=== PATIENT | male | born 1960 | race American Indian/Alaskan Native ===

== ENCOUNTER 2018-08-03 13:03 | Inpatient (IN) | payer OTHER ==
[2018-08-03] MEDS ORDERED: KEPPRA 1,000 MG/NS 0.75% 100ML 0 MG/0 ML BAG IV ONE (13:52)
[2018-08-03] MEDS ORDERED: ATIVAN IV ONE ×2 (14:00→16:21)
[2018-08-03] MEDS ORDERED: VITAMIN B-1 PO ONE (14:00)
[2018-08-03 14:19] LABS: Hematocrit 28.4 % (35.5-45.6); Hemoglobin 9.1 gm/dl (11.8-15.2); Mean Corpuscular HGB Conc 32 % (32-34); Mean Corpuscular Volume 80 fl (84-94); Platelet Count 234 K/mm3 (140-440); Red Blood Count 3.57 M/mm3 (3.65-5.03); Red Cell Distribution Width 16.1 % (13.2-15.2)
[2018-08-03 14:30] LABS: INR 1.04 (0.87-1.13)
[2018-08-03] MEDS ORDERED: VITAMIN B-1 100 MG, FOLVITE 1 MG, INFUVITE 10 ML in NACL 0.9% 1000 ML 1,000 ML IV ONE (14:30)
[2018-08-03] MEDS ORDERED: FOLVITE 1 MG, INFUVITE 10 ML in NACL 0.9% 1000 ML 1,000 ML IV ONE (14:30)
[2018-08-03 14:31] LABS: Partial Thromboplastin Time 30.1 Sec. (24.2-36.6)
--- NOTE | 2018-08-03 14:38 | XRay Report ---
CHEST ONE VIEW INDICATION: Hypertension. COMPARISON: None similar at this institution. FINDINGS: Portable, single, frontal chest radiograph demonstrates top normal heart size. Normal mediastinal and hilar contours. Clear lungs. Unremarkable bones. Extrinsic EKG leads. CONCLUSION: No acute disease in the chest. Thank you for the opportunity to participate in this patient's care.
[2018-08-03 14:46] LABS: Creatine Kinase MB 1.6 ng/mL (0.0-4.0)
[2018-08-03 14:48] LABS: Albumin 3.3 g/dL (3.9-5); Bilirubin,Direct 0.3 mg/dL (0-0.2); Calcium 7.7 mg/dL (8.4-10.2)
[2018-08-03] MEDS ORDERED: MAGNESIUM SULFATE 2GM/50ML 2 GM/50 ML BAG IV ONE (15:41)
[2018-08-03] MEDS ORDERED: NORMODYNE IV ONE ×2 (15:58)
[2018-08-03] MEDS ORDERED: KEPPRA 1,000 MG/NS 0.75% 100ML 1,000 MG/100 ML BAG IV ONE (16:24)
--- NOTE | 2018-08-03 16:26 | Emergency Department Report ---
ED Seizure HPI - General Chief Complaint: Seizure Stated Complaint: BACK PAIN Time Seen by Provider: 08/03/18 13:58 Source: patient, EMS Mode of arrival: Stretcher Limitations: No Limitations - History of Present Illness Initial Comments: 57-year-old female is brought in by EMS after having a seizure in the back of a taxi. It is said that the patient was coming out of liquor store at that time. The patient tells me that he stopped drinking yesterday. He is very tremulous. He does not complain of any injury. He has had seizures upon alcohol disco ntinuance before. MD Complaint: seizure -: unknown Description of Episode: tonic-clonic movement Witnessed:: Yes Trauma: No Seizure History: known seizure disorder (versus), history of withdrawal se Place: other Possible Precipitating Event: alcohol withdrawal - Related Data Allergies Allergy/AdvReac Type Severity Reaction Status Date / Time No Known Allergies Allergy Unverified 08/03/18 13:17 ED Review of Systems ROS: Stated complaint: BACK PAIN Other details as noted in HPI Constitutional: denies: chills, fever Eyes: denies: eye pain, eye discharge, vision change ENT: denies: ear pain, throat pain Respiratory: denies: cough, shortness of breath, wheezing Cardiovascular: denies: chest pain, palpitations Endocrine: no symptoms reported Gastrointestinal: denies: abdominal pain, nausea, diarrhea Genitourinary: denies: urgency, dysuria Musculoskeletal: denies: back pain, joint swelling, arthralgia Skin: denies: rash, lesions Neurological: denies: headache, weakness, paresthesias Psychiatric: denies: anxiety, depression Hematological/Lymphatic: denies: easy bleeding, easy bruising ED Past Medical Hx - Past Medical History Previous Medical History?: Yes Hx Hypertension: Yes - Surgical History Past Surgical History?: No - Social History Smoking Status: Never Smoker Substance Use Type: Alcohol ED Physical Exam - General Limitations: No Limitations, Other (patient had intermittent tangential speech about low blood pressure and low hemoglobin but is basically oriented) General appearance: other (very tremulous) - Head Head exam: Present: atraumatic - Eye Eye exam: Present: PERRL, EOMI. Absent: scleral icterus - ENT ENT exam: Present: other (multiple previous healed tongue bites with fresh tongue abrasion) - Neck Neck exam: Present: normal inspection. Absent: tenderness, meningismus - Respiratory Respiratory exam: Present: normal lung sounds bilaterally. Absent: respiratory distress - Cardiovascular Cardiovascular Exam: Present: regular rate, normal rhythm. Absent: systolic murmur, diastolic murmur, rubs, gallop - GI/Abdominal GI/Abdominal exam: Present: soft, normal bowel sounds. Absent: distended, tenderness, guarding, rebound, rigid - Extremities Exam Extremities exam: Present: normal inspection, normal capillary refill. Absent: calf tenderness - Back Exam Back exam: Present: normal inspection. Absent: CVA tenderness (R), CVA tenderness (L), muscle spasm, paraspinal tenderness, vertebral tenderness - Neurological Exam Neurological exam: Present: altered (intermittently), CN II-XII intact. Absent: motor sensory deficit - Psychiatric Psychiatric exam: Present: normal affect, anxious - Skin Skin exam: Present: warm, dry, intact, normal color. Absent: rash ED Course Vital Signs 08/03/18 08/03/18 08/03/18 13:17 13:43 13:45 Temperature 98.5 F 98.5 F Pulse Rate 100 H 100 H Respiratory 20 20 20 Rate Blood Pressure 169/107 Blood Pressure 169/107 [Right] O2 Sat by Pulse 98 98 98 Oximetry - Reevaluation(s) Reevaluation #1: Patient has signs of substantial alcohol which all. He is tongue fasciculations. He is grossly tremulous. He was given Ativan which needs titration. Banana bag initiated. We do not have IV thiamine. By mouth will be ordered. His magnesium level is extremely low. This is being repleted. He will go for a CT of his head. It appears he said multiple seizures in the past 5 added Keppra to his regimen. He will require admission to the hospitalist service for impending DT's 08/03/18 16:31 ED Medical Decision Making - Lab Data Result diagrams: 08/03/18 13:58 08/03/18 14:01 Laboratory Results - last 24 hr 08/03/18 08/03/18 08/03/18 13:55 13:58 14:01 WBC 6.6 RBC 3.57 L Hgb 9.1 L Hct 28.4 L MCV 80 L MCH 26 L MCHC 32 RDW 16.1 H Plt Count 234 PT 14.0 INR 1.04 APTT 30.1 Sodium Potassium Chloride Carbon Dioxide Anion Gap BUN Creatinine Estimated GFR BUN/Creatinine Ratio Glucose POC Glucose 105 Calcium Magnesium Total Bilirubin Direct Bilirubin Indirect Bilirubin AST ALT Alkaline Phosphatase Ammonia Total Creatine Kinase CK-MB (CK-2) CK-MB (CK-2) Rel Index NT-Pro-B Natriuret Pep Total Protein Albumin Albumin/Globulin Ratio Plasma/Serum Alcohol 08/03/18 08/03/18 08/03/18 14:01 14:30 14:45 WBC RBC Hgb Hct MCV MCH MCHC RDW Plt Count PT INR APTT Sodium 134 L Potassium 3.4 L Chloride 91.7 L Carbon Dioxide 25 Anion Gap 21 BUN 16 Creatinine 1.8 H Estimated GFR 39 BUN/Creatinine Ratio 9 Glucose 105 H POC Glucose Calcium 7.7 L Magnesium 0.70 L* Total Bilirubin 0.70 Direct Bilirubin 0.3 H Indirect Bilirubin 0.4 AST 39 ALT 15 Alkaline Phosphatase 60 Ammonia 38.0 Total Creatine Kinase 152 CK-MB (CK-2) 1.6 CK-MB (CK-2) Rel Index 1.0 NT-Pro-B Natriuret Pep 1897 H Total Protein 8.4 H Albumin 3.3 L Albumin/Globulin Ratio 0.6 Plasma/Serum Alcohol < 0.01 - EKG Data -: EKG Interpreted by Me EKG shows normal: sinus rhythm, axis, intervals, QRS complexes, ST-T waves Rate: normal - EKG Data Interpretation: nonspecific ST-T wave jaspreet - Radiology Data Radiology results: report reviewed interpreted by me: MOUNIKA Critical care attestation.: If time is entered above; I have spent that time in minutes in the direct care of this critically ill patient, excluding procedure time. ED Disposition Clinical Impression: DTs (delirium tremens), Seizure, Hypomagnesemia, Hypokalemia, Renal insufficiency Disposition: OP ADMIT IP TO THIS HOSP Is pt being admited?: Yes Does the pt Need Aspirin: Yes Condition: Stable Referrals: BERENICE GAMEZ MD [Primary Care Provider] - 3-5 Days Time of Disposition: 16:44
[2018-08-03] MEDS ORDERED: BABY ASPIRIN PO ONE (16:44)
[2018-08-03] MEDS ORDERED: K-DUR PO ONE (16:45)
[2018-08-03] MEDS ORDERED: ATIVAN IV PRN (16:47)
--- NOTE | 2018-08-03 17:48 | Cat Scan Report ---
FINAL REPORT EXAM: CT HEAD/BRAIN WO CON HISTORY: seizure TECHNIQUE: 2.5 millimeter axial images from the skullbase to the vertex. Comparison: None FINDINGS: There is no evidence of an acute intracranial process, intracranial hemorrhage or mass effect. Ventricular size is concordant with the degree of atrophy. There is an approximately 12 millimeter focus of calcification in the right parafalcine frontal regio n which may represent a small calcified meningioma. This does not result in mass effect. The visualized portions of the orbits, paranasal and mastoid sinuses are notable for mild to moderate bilateral maxillary, ethmoid and frontal sinus mucosal thickening with air-fluid levels. This is sug gestive of acute sinusitis. The bony structures are unremarkable. IMPRESSION: 1. No evidence of an acute intracranial process, intracranial hemorrhage or mass effect. If there is a clinical suspicion of an acute intracranial process and if there is no clinical contrai ndication, MRI brain may be helpful. 2. Evidence of acute sinusitis paranasal sinuses. 3. Possible small right frontal parafalcine calcified meningioma.
[2018-08-03] MEDS ORDERED: APRESOLINE IV ONE (20:19)
[2018-08-03] MEDS ORDERED: APRESOLINE ONE (20:26)
[2018-08-03] MEDS ORDERED: ATIVAN ONE (21:03)
[2018-08-03] MEDS: ATIVAN IV PRN (21:05)
[2018-08-04] MEDS ORDERED: SODIUM CHLORIDE FLUSH SYRINGE 10 ML IV PRN ×2 (00:30→10:00)
[2018-08-04] MEDS ORDERED: ZOFRAN IV PRN ×2 (00:30→09:30)
[2018-08-04] MEDS: ATIVAN IV PRN ×4 (00:34→22:14)
[2018-08-04] MEDS ORDERED: LOPRESSOR PO ONE ×2 (00:46→02:56)
[2018-08-04] MEDS ORDERED: SODIUM CHLORIDE FLUSH SYRINGE 10 ML IV SCH (01:00)
[2018-08-04] MEDS: D5NS 1,000 ML IV SCH (01:08)
[2018-08-04] MEDS: PEPCID IV SCH ×3 (01:08→22:14)
[2018-08-04 02:01] LABS: Alanine Aminotransferase 12 units/L (7-56); BUN/Creatinine Ratio 10; Blood Urea Nitrogen 13 mg/dL (9-20); Calcium 7.1 mg/dL (8.4-10.2); Hemolysis Index 0
[2018-08-04] MEDS: KEPPRA 750 MG in NACL 0.9% 100 ML IV SCH ×2 (05:15→19:10)
--- NOTE | 2018-08-04 07:30 | Event Note ---
Date: 08/03/18 See H/p in reports Syncope
[2018-08-04] MEDS ORDERED: TYLENOL PO PRN (07:36)
--- NOTE | 2018-08-04 08:04 | History and Physical Report ---
CHIEF COMPLAINT: Seizures x 1. HISTORY OF PRESENT ILLNESS: A 57-year-old male with seizures while in a taxi. The patient was coming out of a liquor store at that time. The patient apparently stopped drinking yesterday. The patient is tremulous. No injuries. Had seizures before on discontinuation of alcohol. ETOH dependent. PAST MEDICAL HISTORY: Significant for hypertension and ETOH dependence. PAST SURGICAL HISTORY: None. SOCIAL HISTORY: Alcohol on a regular basis. The patient could not quantify. FAMILY HISTORY: Hypertension. REVIEW OF SYSTEMS: Significant for seizures. PHYSICAL EXAMINATION: GENERAL: A middle-aged male, looks older than his age. VITAL SIGNS: Blood pressure is 168/106, temperature is 98, pulse is 115, respirations are 18. HEENT: Unremarkable. Pupils are equal and reactive. NECK: Supple, no lymphadenopathy, no thyromegaly. LUNGS: Clear to auscultation and percussion. Good air entry. CARDIOVASCULAR: S1, S2 heard. No gallop, no murmur, no rub. Apical impulse in left fifth intercostal space and midclavicular line. ABDOMEN: Soft and benign. No hepatosplenomegaly. No guarding, no rigidity. Hernial orifices are normal. EXTREMITIES: Good pedal pulses. No pedal edema. CENTRAL NERVOUS SYSTEM: Alert and oriented x 4.: Nonfocal exam. The patient is tremulous. LABORATORY DATA: Significant for a white count of 6600, H and H of 9.1 and 28.4, platelet count of 234,000. Magnesium is 0.70, potassium is 3.4. Sodium is 134, BUN and creatinine 16 and 1.8. BNP is ____. EKG shows normal sinus rhythm, heart rate of 90 per minute, LVH by voltage criteria. There are no acute findings. CT of the head, no evidence of acute intracranial process, evidence of acute sinusitis. ASSESSMENT AND PLAN: 1. Seizures secondary to ETOH withdrawal. The patient initiated on Keppra. The patient may be switched to p.o. Keppra once 2 doses of IV Keppra given. 2. ETOH dependence. The patient counseled. Mental health consult requested. 3. Hypertension. Continue antihypertensives. 4. Hypomagnesemia, supplemented. 5. Hypokalemia, supplemented. 6. Dehydration. IV fluids. 7. Deep venous thrombosis prophylaxis, Lovenox 40 mg subcutaneous daily. [facility]# [id number] RK/SRIKANTH
[2018-08-04] MEDS ORDERED: K-DUR PO ONE (10:00)
[2018-08-04] MEDS ORDERED: MAGNESIUM SULFATE 2GM/50ML 2 GM/50 ML BAG IV ONE (10:00)
--- NOTE | 2018-08-04 11:08 | Progress Note ---
Assessment and Plan Assessment and plan: Delirium tremens with Alcohol withdrawal seizures [facility] protocol seizure precautions Hypertensive urgency. Monitor BP Alcohol abuse. Will residential counselor when stable Hypokalemia. Replace and recheck Hypomagnesemia. replace and recheck Metabolic encephalopathy Full code status History Interval history: Seizure due to alcohol withdrawal Confused Hospitalist Physical - Physical exam Narrative exam: GEN: Not in acute distress, lying in bed HEENT: Normocephalic, atraumatic, Neck: supple, No JVD Lungs: Clear to auscultation bilaterally, no wheeze Heart:S1 and S2 regular, no murmurs, rubs or gallop, Abd:soft, non tender, non distended, normal bowel sounds Ext: No edema, no clubbing or cyanosis Neuro: Lethargic, confused, moves all ext - Constitutional Vitals: Temp Pulse Resp BP Pulse Ox 98.4 F 93 H 18 138/93 99 08/04/18 08:15 08/04/18 08:15 08/04/18 08:15 08/04/18 08:15 08/04/18 08:15 Results - Labs CBC & Chem 7: 08/05/18 05:12 08/06/18 06:32 Labs: Laboratory Last Values WBC 6.6 K/mm3 (4.5-11.0) 08/03/18 13:58 RBC 3.57 M/mm3 (3.65-5.03) L 08/03/18 13:58 Hgb 9.1 gm/dl (11.8-15.2) L 08/03/18 13:58 Hct 28.4 % (35.5-45.6) L 08/03/18 13:58 MCV 80 fl (84-94) L 08/03/18 13:58 MCH 26 pg (28-32) L 08/03/18 13:58 MCHC 32 % (32-34) 08/03/18 13:58 RDW 16.1 % (13.2-15.2) H 08/03/18 13:58 Plt Count 234 K/mm3 (140-440) 08/03/18 13:58 PT 14.0 Sec. (12.2-14.9) 08/03/18 14:01 INR 1.04 (0.87-1.13) 08/03/18 14:01 APTT 30.1 Sec. (24.2-36.6) 08/03/18 14:01 Sodium 135 mmol/L (137-145) L 08/04/18 00:45 Potassium 3.1 mmol/L (3.6-5.0) L 08/04/18 00:45 Chloride 94.8 mmol/L (98-107) L 08/04/18 00:45 Carbon Dioxide 22 mmol/L (22-30) 08/04/18 00:45 Anion Gap 21 mmol/L 08/04/18 00:45 BUN 13 mg/dL (9-20) 08/04/18 00:45 Creatinine 1.3 mg/dL (0.8-1.5) 08/04/18 00:45 Estimated GFR > 60 ml/min 08/04/18 00:45 BUN/Creatinine Ratio 10 % 08/04/18 00:45 Glucose 90 mg/dL (75-100) 08/04/18 00:45 POC Glucose 105 (70-105) 08/03/18 13:55 Hemoglobin A1c < 4.2 % (4-6) 08/04/18 00:45 Calcium 7.1 mg/dL (8.4-10.2) L 08/04/18 00:45 Magnesium 0.70 mg/dL (1.7-2.3) L* 08/03/18 14:01 Total Bilirubin 0.50 mg/dL (0.1-1.2) 08/04/18 00:45 Direct Bilirubin 0.3 mg/dL (0-0.2) H 08/03/18 14:01 Indirect Bilirubin 0.4 mg/dL 08/03/18 14:01 AST 32 units/L (5-40) 08/04/18 00:45 ALT 12 units/L (7-56) 08/04/18 00:45 Alkaline Phosphatase 57 units/L (35-129) 08/04/18 00:45 Ammonia 38.0 umol/L (25-60) 08/03/18 14:45 Total Creatine Kinase 152 units/L (55-170) 08/03/18 14:01 CK-MB (CK-2) 1.6 ng/mL (0.0-4.0) 08/03/18 14:01 CK-MB (CK-2) Rel Index 1.0 (0-4) 08/03/18 14:01 NT-Pro-B Natriuret Pep 1897 pg/mL (0-900) H 08/03/18 14:01 Total Protein 7.0 g/dL (6.3-8.2) 08/04/18 00:45 Albumin 3.0 g/dL (3.9-5) L 08/04/18 00:45 Albumin/Globulin Ratio 0.8 % 08/04/18 00:45 Plasma/Serum Alcohol < 0.01 % (0-0.07) 08/03/18 14:30
[2018-08-04] MEDS: SODIUM CHLORIDE FLUSH SYRINGE 10 ML IV SCH ×2 (11:44→22:14)
[2018-08-04] MEDS ORDERED: ATIVAN IV PRN (21:48)
[2018-08-04] MEDS ORDERED: MAGNESIUM SULFATE 4GM/100ML 4 GM/100 ML BAG IV ONE (23:32)
[2018-08-05] MEDS: ATIVAN IV PRN ×6 (00:16→21:02)
[2018-08-05] MEDS ORDERED: LOPRESSOR PO ONE (05:35)
[2018-08-05] MEDS: KEPPRA 750 MG in NACL 0.9% 100 ML IV SCH ×2 (05:50→17:10)
[2018-08-05 05:53] LABS: Basophils % (Auto) 0.5 % (0.0-1.8); Eosinophils % (Auto) 0.7 % (0.0-4.3); Hematocrit 26.6 % (35.5-45.6); Hemoglobin 8.5 gm/dl (11.8-15.2); Lymphocytes % (Auto) 18.7 % (13.4-35.0); Mean Corpuscular HGB Conc 32 % (32-34); Mean Corpuscular Volume 82 fl (84-94); Monocytes # (Auto) 0.7 K/mm3 (0.0-0.8); Monocytes % (Auto) 13.9 % (0.0-7.3); Platelet Count 231 K/mm3 (140-440); Red Blood Count 3.26 M/mm3 (3.65-5.03); Red Cell Distribution Width 16.5 % (13.2-15.2)
[2018-08-05 05:56] LABS: BUN/Creatinine Ratio 7; Blood Urea Nitrogen 8 mg/dL (9-20); Calcium 7.4 mg/dL (8.4-10.2); Hemolysis Index 3
[2018-08-05] MEDS: K-DUR PO SCH ×2 (10:00→16:29)
[2018-08-05] MEDS: PEPCID IV SCH ×2 (10:59→21:03)
[2018-08-05] MEDS: SODIUM CHLORIDE FLUSH SYRINGE 10 ML IV SCH ×2 (11:00→21:03)
[2018-08-05] MEDS: D5NS 1,000 ML IV SCH (12:19)
[2018-08-05] MEDS ORDERED: PROPRANOLOL HCL PO SCH (14:00)
--- NOTE | 2018-08-05 14:54 | Progress Note ---
Assessment and Plan Assessment and plan: Delirium tremens with Alcohol withdrawal seizures [facility] protocol seizure precautions Hypertensive urgency. Monitor BP Alcohol abuse. Will christian counselor when stable Hypokalemia. Replace and recheck Hypomagnesemia. replace and recheck Metabolic encephalopathy due to alcohol withdrawal Discussed with sister who is requesting placement Full code status History Interval history: Seizure due to alcohol withdrawal Still Confused Hospitalist Physical - Physical exam Narrative exam: GEN: Not in acute distress, lying in bed HEENT: Normocephalic, atraumatic, Neck: supple, No JVD Lungs: Clear to auscultation bilaterally, no wheeze Heart:S1 and S2 regular, no murmurs, rubs or gallop, Abd:soft, non tender, non distended, normal bowel sounds Ext: No edema, no clubbing or cyanosis Neuro: Lethargic, confused, moves all ext - Constitutional Vitals: Temp Pulse Resp BP Pulse Ox 98.2 F 91 H 22 167/101 97 08/05/18 13:33 08/05/18 13:33 08/05/18 13:33 08/05/18 13:33 08/05/18 13:33 Results - Labs CBC & Chem 7: 08/05/18 05:12 08/06/18 06:32 Labs: Laboratory Last Values WBC 5.1 K/mm3 (4.5-11.0) 08/05/18 05:12 RBC 3.26 M/mm3 (3.65-5.03) L 08/05/18 05:12 Hgb 8.5 gm/dl (11.8-15.2) L 08/05/18 05:12 Hct 26.6 % (35.5-45.6) L 08/05/18 05:12 MCV 82 fl (84-94) L 08/05/18 05:12 MCH 26 pg (28-32) L 08/05/18 05:12 MCHC 32 % (32-34) 08/05/18 05:12 RDW 16.5 % (13.2-15.2) H 08/05/18 05:12 Plt Count 231 K/mm3 (140-440) 08/05/18 05:12 Lymph % (Auto) 18.7 % (13.4-35.0) 08/05/18 05:12 Elliott % (Auto) 13.9 % (0.0-7.3) H 08/05/18 05:12 Eos % (Auto) 0.7 % (0.0-4.3) 08/05/18 05:12 Baso % (Auto) 0.5 % (0.0-1.8) 08/05/18 05:12 Lymph # 1.0 K/mm3 (1.2-5.4) L 08/05/18 05:12 Elliott # 0.7 K/mm3 (0.0-0.8) 08/05/18 05:12 Eos # 0.0 K/mm3 (0.0-0.4) 08/05/18 05:12 Baso # 0.0 K/mm3 (0.0-0.1) 08/05/18 05:12 Seg Neutrophils % 66.2 % (40.0-70.0) 08/05/18 05:12 Seg Neutrophils # 3.4 K/mm3 (1.8-7.7) 08/05/18 05:12 PT 14.0 Sec. (12.2-14.9) 08/03/18 14:01 INR 1.04 (0.87-1.13) 08/03/18 14:01 APTT 30.1 Sec. (24.2-36.6) 08/03/18 14:01 Sodium 136 mmol/L (137-145) L 08/05/18 05:12 Potassium 3.5 mmol/L (3.6-5.0) L 08/05/18 05:12 Chloride 102.0 mmol/L (98-107) 08/05/18 05:12 Carbon Dioxide 21 mmol/L (22-30) L 08/05/18 05:12 Anion Gap 17 mmol/L 08/05/18 05:12 BUN 8 mg/dL (9-20) L 08/05/18 05:12 Creatinine 1.1 mg/dL (0.8-1.5) 08/05/18 05:12 Estimated GFR > 60 ml/min 08/05/18 05:12 BUN/Creatinine Ratio 7 % 08/05/18 05:12 Glucose 92 mg/dL (75-100) 08/05/18 05:12 POC Glucose 105 (70-105) 08/03/18 13:55 Hemoglobin A1c < 4.2 % (4-6) 08/04/18 00:45 Calcium 7.4 mg/dL (8.4-10.2) L 08/05/18 05:12 Magnesium 2.20 mg/dL (1.7-2.3) 08/05/18 09:50 Total Bilirubin 0.50 mg/dL (0.1-1.2) 08/04/18 00:45 Direct Bilirubin 0.3 mg/dL (0-0.2) H 08/03/18 14:01 Indirect Bilirubin 0.4 mg/dL 08/03/18 14:01 AST 32 units/L (5-40) 08/04/18 00:45 ALT 12 units/L (7-56) 08/04/18 00:45 Alkaline Phosphatase 57 units/L (35-129) 08/04/18 00:45 Ammonia 38.0 umol/L (25-60) 08/03/18 14:45 Total Creatine Kinase 152 units/L (55-170) 08/03/18 14:01 CK-MB (CK-2) 1.6 ng/mL (0.0-4.0) 08/03/18 14:01 CK-MB (CK-2) Rel Index 1.0 (0-4) 08/03/18 14:01 NT-Pro-B Natriuret Pep 1897 pg/mL (0-900) H 08/03/18 14:01 Total Protein 7.0 g/dL (6.3-8.2) 08/04/18 00:45 Albumin 3.0 g/dL (3.9-5) L 08/04/18 00:45 Albumin/Globulin Ratio 0.8 % 08/04/18 00:45 Plasma/Serum Alcohol < 0.01 % (0-0.07) 08/03/18 14:30
[2018-08-05] MEDS: INDERAL PO SCH ×2 (15:37→21:00)
[2018-08-06] MEDS: ATIVAN IV PRN ×4 (01:57→21:48)
[2018-08-06] MEDS: APRESOLINE IV PRN ×5 (01:58→21:49)
[2018-08-06] MEDS: KEPPRA 750 MG in NACL 0.9% 100 ML IV SCH ×2 (05:31→17:42)
[2018-08-06 07:14] LABS: BUN/Creatinine Ratio 5; Blood Urea Nitrogen 6 mg/dL (9-20); Calcium 7.7 mg/dL (8.4-10.2); Hemolysis Index 3
[2018-08-06] MEDS: INDERAL PO SCH ×3 (08:06→21:50)
--- NOTE | 2018-08-06 09:38 | Progress Note ---
Assessment and Plan Assessment and plan: Delirium tremens with Alcohol withdrawal seizures [facility] protocol seizure precautions Hypertensive urgency. Monitor BP Alcohol abuse. Will claims counsel when stable Hypokalemia. Replace and recheck Hypomagnesemia. replace and recheck Metabolic encephalopathy due to alcohol withdrawal Discussed with sister over phone on 08/05/18 and she is requesting placement Full code status History Interval history: Seizure due to alcohol withdrawal Still Confused Hospitalist Physical - Physical exam Narrative exam: GEN: Not in acute distress, lying in bed HEENT: Normocephalic, atraumatic, Neck: supple, No JVD Lungs: Clear to auscultation bilaterally, no wheeze Heart:S1 and S2 regular, no murmurs, rubs or gallop, Abd:soft, non tender, non distended, normal bowel sounds Ext: No edema, no clubbing or cyanosis Neuro: Lethargic, confused, moves all ext - Constitutional Vitals: Temp Pulse Resp BP Pulse Ox 98.5 F 99 H 16 154/94 97 08/06/18 04:13 08/06/18 05:30 08/06/18 04:13 08/06/18 06:04 08/06/18 04:13 Results - Labs CBC & Chem 7: 08/05/18 05:12 08/06/18 06:32 Labs: Laboratory Last Values WBC 5.1 K/mm3 (4.5-11.0) 08/05/18 05:12 RBC 3.26 M/mm3 (3.65-5.03) L 08/05/18 05:12 Hgb 8.5 gm/dl (11.8-15.2) L 08/05/18 05:12 Hct 26.6 % (35.5-45.6) L 08/05/18 05:12 MCV 82 fl (84-94) L 08/05/18 05:12 MCH 26 pg (28-32) L 08/05/18 05:12 MCHC 32 % (32-34) 08/05/18 05:12 RDW 16.5 % (13.2-15.2) H 08/05/18 05:12 Plt Count 231 K/mm3 (140-440) 08/05/18 05:12 Lymph % (Auto) 18.7 % (13.4-35.0) 08/05/18 05:12 B[place] % (Auto) 13.9 % (0.0-7.3) H 08/05/18 05:12 Eos % (Auto) 0.7 % (0.0-4.3) 08/05/18 05:12 Baso % (Auto) 0.5 % (0.0-1.8) 08/05/18 05:12 Lymph # 1.0 K/mm3 (1.2-5.4) L 08/05/18 05:12 [place] # 0.7 K/mm3 (0.0-0.8) 08/05/18 05:12 Eos # 0.0 K/mm3 (0.0-0.4) 08/05/18 05:12 Baso # 0.0 K/mm3 (0.0-0.1) 08/05/18 05:12 Seg Neutrophils % 66.2 % (40.0-70.0) 08/05/18 05:12 Seg Neutrophils # 3.4 K/mm3 (1.8-7.7) 08/05/18 05:12 PT 14.0 Sec. (12.2-14.9) 08/03/18 14:01 INR 1.04 (0.87-1.13) 08/03/18 14:01 APTT 30.1 Sec. (24.2-36.6) 08/03/18 14:01 Sodium 135 mmol/L (137-145) L 08/06/18 06:32 Potassium 4.1 mmol/L (3.6-5.0) 08/06/18 06:32 Chloride 102.1 mmol/L (98-107) 08/06/18 06:32 Carbon Dioxide 19 mmol/L (22-30) L 08/06/18 06:32 Anion Gap 18 mmol/L 08/06/18 06:32 BUN 6 mg/dL (9-20) L 08/06/18 06:32 Creatinine 1.1 mg/dL (0.8-1.5) 08/06/18 06:32 Estimated GFR > 60 ml/min 08/06/18 06:32 BUN/Creatinine Ratio 5 % 08/06/18 06:32 Glucose 84 mg/dL (75-100) 08/06/18 06:32 POC Glucose 105 (70-105) 08/03/18 13:55 Hemoglobin A1c < 4.2 % (4-6) 08/04/18 00:45 Calcium 7.7 mg/dL (8.4-10.2) L 08/06/18 06:32 Magnesium 2.20 mg/dL (1.7-2.3) 08/05/18 09:50 Total Bilirubin 0.50 mg/dL (0.1-1.2) 08/04/18 00:45 Direct Bilirubin 0.3 mg/dL (0-0.2) H 08/03/18 14:01 Indirect Bilirubin 0.4 mg/dL 08/03/18 14:01 AST 32 units/L (5-40) 08/04/18 00:45 ALT 12 units/L (7-56) 08/04/18 00:45 Alkaline Phosphatase 57 units/L (35-129) 08/04/18 00:45 Ammonia 38.0 umol/L (25-60) 08/03/18 14:45 Total Creatine Kinase 152 units/L (55-170) 08/03/18 14:01 CK-MB (CK-2) 1.6 ng/mL (0.0-4.0) 08/03/18 14:01 CK-MB (CK-2) Rel Index 1.0 (0-4) 08/03/18 14:01 NT-Pro-B Natriuret Pep 1897 pg/mL (0-900) H 08/03/18 14:01 Total Protein 7.0 g/dL (6.3-8.2) 08/04/18 00:45 Albumin 3.0 g/dL (3.9-5) L 08/04/18 00:45 Albumin/Globulin Ratio 0.8 % 08/04/18 00:45 Plasma/Serum Alcohol < 0.01 % (0-0.07) 08/03/18 14:30
[2018-08-06] MEDS: PEPCID IV SCH ×2 (10:05→21:51)
[2018-08-06] MEDS: D5NS 1,000 ML IV SCH (17:42)
[2018-08-06] MEDS ORDERED: CATAPRES PO STA (18:22)
[2018-08-06] MEDS: SODIUM CHLORIDE FLUSH SYRINGE 10 ML IV SCH (21:53)
[2018-08-07] MEDS: APRESOLINE IV PRN (03:26)
[2018-08-07 06:02] LABS: BUN/Creatinine Ratio 7; Blood Urea Nitrogen 6 mg/dL (9-20); Calcium 8.1 mg/dL (8.4-10.2); Hemolysis Index 0
[2018-08-07] MEDS: KEPPRA 750 MG in NACL 0.9% 100 ML IV SCH (06:49)
[2018-08-07] MEDS: D5NS 1,000 ML IV SCH (07:04)
[2018-08-07] MEDS ORDERED: LOPRESSOR PO ONE (07:30)
[2018-08-07] MEDS: INDERAL PO SCH ×3 (08:57→22:45)
[2018-08-07] MEDS ORDERED: VITAMIN B-1 100 MG in NACL 0.9% 50 ML IV SCH (10:00)
[2018-08-07] MEDS ORDERED: MAGNESIUM SULFATE 4GM/100ML 4 GM/100 ML BAG IV ONE (10:00)
[2018-08-07] MEDS: PEPCID IV SCH (10:04)
[2018-08-07] MEDS: THERAGRAN Tab PO SCH (10:04)
[2018-08-07] MEDS: SODIUM CHLORIDE FLUSH SYRINGE 10 ML IV SCH ×2 (10:05→22:36)
[2018-08-07] MEDS: FOLVITE 1 MG in NACL 0.9% 50 ML IV SCH (10:06)
--- NOTE | 2018-08-07 10:37 | Progress Note ---
Assessment and Plan Assessment and plan: Delirium tremens with Alcohol withdrawal seizures [facility] protocol seizure precautions Hypertensive urgency. Monitor BP AMARILYS to vasomotor nephropathy. Alcohol abuse. Will assessment counselor when stable Hypokalemia. Replace and recheck Hypomagnesemia. replace and recheck Metabolic encephalopathy due to alcohol withdrawal Much improved . He is awake,alert Full code status Dispo:poss dc tomorrow. Sister interested in Alcohol rehab program. Case management working on it. History Interval history: Seizure due to alcohol withdrawal Less Confused Hospitalist Physical - Physical exam Narrative exam: GEN: Not in acute distress, lying in bed HEENT: Normocephalic, atraumatic, Neck: supple, No JVD Lungs: Clear to auscultation bilaterally, no wheeze Heart:S1 and S2 regular, no murmurs, rubs or gallop, Abd:soft, non tender, non distended, normal bowel sounds Ext: No edema, no clubbing or cyanosis Neuro: Awake,alert, less confused, moves all ext - Constitutional Vitals: Temp Pulse Resp BP Pulse Ox 98.2 F 86 18 162/102 99 08/07/18 08:28 08/07/18 10:22 08/07/18 10:22 08/07/18 10:22 08/07/18 08:28 Results - Labs CBC & Chem 7: 08/05/18 05:12 08/07/18 04:44 Labs: Laboratory Last Values WBC 5.1 K/mm3 (4.5-11.0) 08/05/18 05:12 RBC 3.26 M/mm3 (3.65-5.03) L 08/05/18 05:12 Hgb 8.5 gm/dl (11.8-15.2) L 08/05/18 05:12 Hct 26.6 % (35.5-45.6) L 08/05/18 05:12 MCV 82 fl (84-94) L 08/05/18 05:12 MCH 26 pg (28-32) L 08/05/18 05:12 MCHC 32 % (32-34) 08/05/18 05:12 RDW 16.5 % (13.2-15.2) H 08/05/18 05:12 Plt Count 231 K/mm3 (140-440) 08/05/18 05:12 Lymph % (Auto) 18.7 % (13.4-35.0) 08/05/18 05:12 Prentiss % (Auto) 13.9 % (0.0-7.3) H 08/05/18 05:12 Eos % (Auto) 0.7 % (0.0-4.3) 08/05/18 05:12 Baso % (Auto) 0.5 % (0.0-1.8) 08/05/18 05:12 Lymph # 1.0 K/mm3 (1.2-5.4) L 08/05/18 05:12 Prentiss # 0.7 K/mm3 (0.0-0.8) 08/05/18 05:12 Eos # 0.0 K/mm3 (0.0-0.4) 08/05/18 05:12 Baso # 0.0 K/mm3 (0.0-0.1) 08/05/18 05:12 Seg Neutrophils % 66.2 % (40.0-70.0) 08/05/18 05:12 Seg Neutrophils # 3.4 K/mm3 (1.8-7.7) 08/05/18 05:12 PT 14.0 Sec. (12.2-14.9) 08/03/18 14:01 INR 1.04 (0.87-1.13) 08/03/18 14:01 APTT 30.1 Sec. (24.2-36.6) 08/03/18 14:01 Sodium 133 mmol/L (137-145) L 08/07/18 04:44 Potassium 4.0 mmol/L (3.6-5.0) 08/07/18 04:44 Chloride 100.9 mmol/L (98-107) 08/07/18 04:44 Carbon Dioxide 20 mmol/L (22-30) L 08/07/18 04:44 Anion Gap 16 mmol/L 08/07/18 04:44 BUN 6 mg/dL (9-20) L 08/07/18 04:44 Creatinine 0.9 mg/dL (0.8-1.5) 08/07/18 04:44 Estimated GFR > 60 ml/min 08/07/18 04:44 BUN/Creatinine Ratio 7 % 08/07/18 04:44 Glucose 98 mg/dL (75-100) 08/07/18 04:44 POC Glucose 105 (70-105) 08/03/18 13:55 Hemoglobin A1c < 4.2 % (4-6) 08/04/18 00:45 Calcium 8.1 mg/dL (8.4-10.2) L 08/07/18 04:44 Magnesium 1.00 mg/dL (1.7-2.3) L 08/07/18 04:44 Total Bilirubin 0.50 mg/dL (0.1-1.2) 08/04/18 00:45 Direct Bilirubin 0.3 mg/dL (0-0.2) H 08/03/18 14:01 Indirect Bilirubin 0.4 mg/dL 08/03/18 14:01 AST 32 units/L (5-40) 08/04/18 00:45 ALT 12 units/L (7-56) 08/04/18 00:45 Alkaline Phosphatase 57 units/L (35-129) 08/04/18 00:45 Ammonia 38.0 umol/L (25-60) 08/03/18 14:45 Total Creatine Kinase 152 units/L (55-170) 08/03/18 14:01 CK-MB (CK-2) 1.6 ng/mL (0.0-4.0) 08/03/18 14:01 CK-MB (CK-2) Rel Index 1.0 (0-4) 08/03/18 14:01 NT-Pro-B Natriuret Pep 1897 pg/mL (0-900) H 08/03/18 14:01 Total Protein 7.0 g/dL (6.3-8.2) 08/04/18 00:45 Albumin 3.0 g/dL (3.9-5) L 08/04/18 00:45 Albumin/Globulin Ratio 0.8 % 08/04/18 00:45 Plasma/Serum Alcohol < 0.01 % (0-0.07) 08/03/18 14:30
[2018-08-07] MEDS: CATAPRES PO SCH ×2 (12:03→22:34)
[2018-08-07] MEDS: VITAMIN B-1 PO SCH (14:05)
[2018-08-07] MEDS: PEPCID PO SCH (22:34)
[2018-08-07] MEDS: LOVENOX SUB-Q SCH (22:35)
[2018-08-07] MEDS: KEPPRA PO SCH (22:35)
[2018-08-08] MEDS: D5NS 1,000 ML IV SCH (02:40)
[2018-08-08 06:09] LABS: Hemoglobin 7.8 gm/dl (11.8-15.2); Mean Corpuscular HGB Conc 31 % (32-34); Mean Corpuscular Volume 81 fl (84-94); Platelet Count 373 K/mm3 (140-440)
[2018-08-08 06:21] LABS: BUN/Creatinine Ratio 9; Blood Urea Nitrogen 12 mg/dL (9-20); Calcium 8.3 mg/dL (8.4-10.2); Hemolysis Index 5
[2018-08-08] MEDS: CATAPRES PO SCH ×2 (09:30→21:08)
[2018-08-08] MEDS: TYLENOL PO PRN (09:30)
[2018-08-08] MEDS: THERAGRAN Tab PO SCH (09:31)
[2018-08-08] MEDS: KEPPRA PO SCH ×2 (09:31→21:08)
[2018-08-08] MEDS: INDERAL PO SCH ×3 (09:31→21:07)
[2018-08-08] MEDS: PEPCID PO SCH ×2 (09:31→21:08)
[2018-08-08] MEDS: SODIUM CHLORIDE FLUSH SYRINGE 10 ML IV SCH ×3 (09:33→21:09)
--- NOTE | 2018-08-08 10:26 | Discharge Summary ---
Providers - Providers Date of Admission: 08/03/18 16:49 Date of discharge: 08/08/18 Attending physician: JUAN DIEGO 08/05/18 15:40 Consult to Case Management [CONS] Routine Services Needed at Discharge: Other Notified:: case management Comment:: Placement Primary care physician: BERENICE GAMEZ Hospitalization Reason for admission: Delirium tremens with Alcohol withdrawal seizures Condition: Stable Hospital course: 57-year-old male was brought in by EMS after having a seizure in the back of a taxi. It is said that the patient was coming out of liquor store at that time. The patient reported to the ER physician that he stopped drinking the day prior to admission. Patient was noted to be tremulous. He has had seizures upon alcohol discontinuance before. Patient was admitted with diagnosis of delirium tremens and alcohol withdrawal seizures. Patient was placed on CIWA protocol and seizure precautions. Also, patient was noted to have acute kidney injury secondary to vasomotor nephropathy as well as electrolyte depletion with hypokalemia and hypomagnesemia. Patient improved with IV fluid hydration and repletion of electrolytes. The patient's metabolic encephalopathy associated to the delirium tremens and alcohol withdrawal seizures improved over the course of hospitalization and patient stabilized. The patient's sister is attempting to have the patient transferred to the [place]. Patient is medically stable and can be discharged. Dedicated discharge time 32 minutes. Disposition: DC-01 TO HOME OR SELFCARE Time spent for discharge: 32 - Discharge Diagnoses (1) DTs (delirium tremens) Status: Acute (2) Hypokalemia Status: Acute (3) Hypomagnesemia Status: Acute (4) Renal insufficiency Status: Acute (5) Seizure Status: Acute Core Measure Documentation - Palliative Care Palliative Care/ Comfort Measures: Not Applicable - Core Measures Any of the following diagnoses?: none Exam - Constitutional Vitals: Temp Pulse Resp BP Pulse Ox 98.6 F 85 20 145/96 99 08/08/18 04:14 08/08/18 04:14 08/08/18 04:14 08/08/18 09:30 08/08/18 04:14 General appearance: Present: no acute distress, well-nourished - EENT Eyes: Present: PERRL ENT: hearing intact, clear oral mucosa - Neck Neck: Present: supple, normal ROM - Respiratory Respiratory effort: normal Respiratory: bilateral: CTA - Cardiovascular Heart Sounds: Present: S1 & S2. Absent: rub, click - Extremities Extremities: pulses symmetrical, No edema Peripheral Pulses: within normal limits - Abdominal General gastrointestinal: Present: soft, non-tender, non-distended, normal bowel sounds Male genitourinary: Present: normal - Integumentary Integumentary: Present: clear, warm, dry - Musculoskeletal Musculoskeletal: gait normal, strength equal bilaterally - Psychiatric Psychiatric: appropriate mood/affect, intact judgment & insight - Neurologic Neurologic: CNII-XII intact, moves all extremities Plan Activity: advance as tolerated Weight Bearing Status: Weight Bear as Tolerated Diet: regular Follow up with: BERENICE GAMEZ MD [Primary Care Provider] - 3-5 Days Prescriptions: cloNIDine [Catapres] 0.2 mg PO Q12HR #60 tablet Famotidine [Pepcid] 20 mg PO BID #60 tablet Multivitamin Tab [Multiple Vitamin TAB (Theragran)] 1 each PO QDAY #30 tablet Propranolol HCl 50 mg PO TID #90 tablet Thiamine [Vitamin B-1] 100 mg PO QDAY #30 tablet
[2018-08-08] MEDS: FOLVITE 1 MG in NACL 0.9% 50 ML IV SCH (12:48)
[2018-08-08] MEDS: VITAMIN B-1 PO SCH (12:49)
[2018-08-08] MEDS: LOVENOX SUB-Q SCH (21:08)
[2018-08-09] MEDS: DILAUDID IV PRN ×4 (08:10→18:21)
[2018-08-09] MEDS: PEPCID PO SCH ×2 (09:18→22:20)
[2018-08-09] MEDS: KEPPRA PO SCH ×2 (09:18→22:20)
[2018-08-09] MEDS: FOLVITE 1 MG in NACL 0.9% 50 ML IV SCH (09:19)
[2018-08-09] MEDS: THERAGRAN Tab PO SCH (09:19)
[2018-08-09] MEDS: VITAMIN B-1 PO SCH (09:19)
[2018-08-09] MEDS: SODIUM CHLORIDE FLUSH SYRINGE 10 ML IV SCH ×2 (09:19→22:21)
[2018-08-09] MEDS: CATAPRES PO SCH ×2 (09:22→22:20)
[2018-08-09] MEDS: INDERAL PO SCH ×3 (09:29→20:02)
--- NOTE | 2018-08-09 13:31 | Progress Note ---
Assessment and Plan Assessment and plan: Delirium tremens with Alcohol withdrawal seizures [facility] protocol seizure precautions Hypertensive urgency. Monitor BP AMARILYS to vasomotor nephropathy. Alcohol abuse. Will staff counsel when stable Hypokalemia. Replace and recheck Hypomagnesemia. replace and recheck Metabolic encephalopathy due to alcohol withdrawal Much improved . He is awake,alert Full code status Dispo:poss dc tomorrow. Sister interested in Alcohol rehab program. Case management working on it. - Patient Problems (1) DTs (delirium tremens) Current Visit: Yes Status: Acute (2) Hypokalemia Current Visit: Yes Status: Acute (3) Hypomagnesemia Current Visit: Yes Status: Acute (4) Renal insufficiency Current Visit: Yes Status: Acute (5) Seizure Current Visit: Yes Status: Acute History Interval history: No issues overnight. Hospitalist Physical - Constitutional Vitals: Temp Pulse Resp BP Pulse Ox 98.4 F 82 18 182/111 100 08/09/18 07:37 08/09/18 11:55 08/09/18 07:37 08/09/18 11:55 08/09/18 11:55 General appearance: Present: no acute distress, well-nourished - EENT Eyes: Present: PERRL, EOM intact ENT: hearing intact, clear oral mucosa, dentition normal - Neck Neck: Present: supple, normal ROM - Respiratory Respiratory effort: normal Respiratory: bilateral: CTA - Cardiovascular Rhythm: regular Heart Sounds: Present: S1 & S2. Absent: gallop, rub - Extremities Extremities: no ischemia, No edema, Full ROM - Abdominal General gastrointestinal: soft, non-tender, non-distended, normal bowel sounds - Integumentary Integumentary: Present: clear, warm, dry - Neurologic Neurologic: CNII-XII intact, moves all extremities Results - Labs CBC & Chem 7: 08/08/18 05:22 08/08/18 05:22 Labs: Laboratory Last Values WBC 4.8 K/mm3 (4.5-11.0) 08/08/18 05:22 RBC 3.10 M/mm3 (3.65-5.03) L 08/08/18 05:22 Hgb 7.8 gm/dl (11.8-15.2) L 08/08/18 05:22 Hct 25.0 % (35.5-45.6) L 08/08/18 05:22 MCV 81 fl (84-94) L 08/08/18 05:22 MCH 25 pg (28-32) L 08/08/18 05:22 MCHC 31 % (32-34) L 08/08/18 05:22 RDW 16.0 % (13.2-15.2) H 08/08/18 05:22 Plt Count 373 K/mm3 (140-440) 08/08/18 05:22 Lymph % (Auto) 18.7 % (13.4-35.0) 08/05/18 05:12 [place] % (Auto) 13.9 % (0.0-7.3) H 08/05/18 05:12 Eos % (Auto) 0.7 % (0.0-4.3) 08/05/18 05:12 Baso % (Auto) 0.5 % (0.0-1.8) 08/05/18 05:12 Lymph # 1.0 K/mm3 (1.2-5.4) L 08/05/18 05:12 [place] # 0.7 K/mm3 (0.0-0.8) 08/05/18 05:12 Eos # 0.0 K/mm3 (0.0-0.4) 08/05/18 05:12 Baso # 0.0 K/mm3 (0.0-0.1) 08/05/18 05:12 Seg Neutrophils % 66.2 % (40.0-70.0) 08/05/18 05:12 Seg Neutrophils # 3.4 K/mm3 (1.8-7.7) 08/05/18 05:12 PT 14.0 Sec. (12.2-14.9) 08/03/18 14:01 INR 1.04 (0.87-1.13) 08/03/18 14:01 APTT 30.1 Sec. (24.2-36.6) 08/03/18 14:01 Sodium 134 mmol/L (137-145) L 08/08/18 05:22 Potassium 4.1 mmol/L (3.6-5.0) 08/08/18 05:22 Chloride 104.3 mmol/L (98-107) 08/08/18 05:22 Carbon Dioxide 20 mmol/L (22-30) L 08/08/18 05:22 Anion Gap 14 mmol/L 08/08/18 05:22 BUN 12 mg/dL (9-20) 08/08/18 05:22 Creatinine 1.3 mg/dL (0.8-1.5) 08/08/18 05:22 Estimated GFR > 60 ml/min 08/08/18 05:22 BUN/Creatinine Ratio 9 % 08/08/18 05:22 Glucose 89 mg/dL (75-100) 08/08/18 05:22 POC Glucose 94 (70-105) 08/08/18 16:47 Hemoglobin A1c < 4.2 % (4-6) 08/04/18 00:45 Calcium 8.3 mg/dL (8.4-10.2) L 08/08/18 05:22 Magnesium 1.70 mg/dL (1.7-2.3) 08/08/18 05:22 Total Bilirubin 0.50 mg/dL (0.1-1.2) 08/04/18 00:45 Direct Bilirubin 0.3 mg/dL (0-0.2) H 08/03/18 14:01 Indirect Bilirubin 0.4 mg/dL 08/03/18 14:01 AST 32 units/L (5-40) 08/04/18 00:45 ALT 12 units/L (7-56) 08/04/18 00:45 Alkaline Phosphatase 57 units/L (35-129) 08/04/18 00:45 Ammonia 38.0 umol/L (25-60) 08/03/18 14:45 Total Creatine Kinase 152 units/L (55-170) 08/03/18 14:01 CK-MB (CK-2) 1.6 ng/mL (0.0-4.0) 08/03/18 14:01 CK-MB (CK-2) Rel Index 1.0 (0-4) 08/03/18 14:01 NT-Pro-B Natriuret Pep 1897 pg/mL (0-900) H 08/03/18 14:01 Total Protein 7.0 g/dL (6.3-8.2) 08/04/18 00:45 Albumin 3.0 g/dL (3.9-5) L 08/04/18 00:45 Albumin/Globulin Ratio 0.8 % 08/04/18 00:45 Plasma/Serum Alcohol < 0.01 % (0-0.07) 08/03/18 14:30
[2018-08-09] MEDS: APRESOLINE IV PRN (14:58)
[2018-08-09] MEDS: TYLENOL PO PRN (20:02)
[2018-08-09] MEDS: LOVENOX SUB-Q SCH (22:19)
[2018-08-10] MEDS: APRESOLINE IV PRN (05:58)
[2018-08-10] MEDS: TYLENOL PO PRN (08:15)
[2018-08-10] MEDS: INDERAL PO SCH (08:16)
[2018-08-10] MEDS: KEPPRA PO SCH (09:44)
[2018-08-10] MEDS: CATAPRES PO SCH (09:45)
[2018-08-10] MEDS: SODIUM CHLORIDE FLUSH SYRINGE 10 ML IV SCH (09:45)
[2018-08-10] MEDS: VITAMIN B-1 PO SCH (09:45)
[2018-08-10] MEDS: THERAGRAN Tab PO SCH (09:45)
[2018-08-10] MEDS: PEPCID PO SCH (09:45)
[2018-08-10] MEDS: FOLVITE 1 MG in NACL 0.9% 50 ML IV SCH (10:21)
--- NOTE | 2018-08-10 11:00 | Progress Note ---
Assessment and Plan Assessment and plan: Delirium tremens with Alcohol withdrawal seizures [facility] protocol seizure precautions Hypertensive urgency. Monitor BP AMARILYS to vasomotor nephropathy. Alcohol abuse. Will group counselor when stable Hypokalemia. Replace and recheck Hypomagnesemia. replace and recheck Metabolic encephalopathy due to alcohol withdrawal Much improved . He is awake,alert Full code status Dispo: D/C today. Sister interested in Alcohol rehab program. Case management working on it. - Patient Problems (1) DTs (delirium tremens) Current Visit: Yes Status: Acute (2) Hypokalemia Current Visit: Yes Status: Acute (3) Hypomagnesemia Current Visit: Yes Status: Acute (4) Renal insufficiency Current Visit: Yes Status: Acute (5) Seizure Current Visit: Yes Status: Acute History Interval history: No issues overnight. Hospitalist Physical - Constitutional Vitals: Temp Pulse Resp BP Pulse Ox 98.8 F 86 20 164/98 99 08/10/18 07:10 08/10/18 07:10 08/10/18 07:10 08/10/18 08:16 08/10/18 07:10 General appearance: Present: no acute distress, well-nourished - EENT Eyes: Present: PERRL, EOM intact ENT: hearing intact, clear oral mucosa, dentition normal - Neck Neck: Present: supple, normal ROM - Respiratory Respiratory effort: normal Respiratory: bilateral: CTA - Cardiovascular Rhythm: regular Heart Sounds: Present: S1 & S2. Absent: gallop, rub - Extremities Extremities: no ischemia, No edema, Full ROM - Abdominal General gastrointestinal: soft, non-tender, non-distended, normal bowel sounds - Integumentary Integumentary: Present: clear, warm, dry - Neurologic Neurologic: CNII-XII intact, moves all extremities Results - Labs CBC & Chem 7: 08/08/18 05:22 08/08/18 05:22 Labs: Laboratory Last Values WBC 4.8 K/mm3 (4.5-11.0) 08/08/18 05:22 RBC 3.10 M/mm3 (3.65-5.03) L 08/08/18 05:22 Hgb 7.8 gm/dl (11.8-15.2) L 08/08/18 05:22 Hct 25.0 % (35.5-45.6) L 08/08/18 05:22 MCV 81 fl (84-94) L 08/08/18 05:22 MCH 25 pg (28-32) L 08/08/18 05:22 MCHC 31 % (32-34) L 08/08/18 05:22 RDW 16.0 % (13.2-15.2) H 08/08/18 05:22 Plt Count 373 K/mm3 (140-440) 08/08/18 05:22 Lymph % (Auto) 18.7 % (13.4-35.0) 08/05/18 05:12 [place] % (Auto) 13.9 % (0.0-7.3) H 08/05/18 05:12 Eos % (Auto) 0.7 % (0.0-4.3) 08/05/18 05:12 Baso % (Auto) 0.5 % (0.0-1.8) 08/05/18 05:12 Lymph # 1.0 K/mm3 (1.2-5.4) L 08/05/18 05:12 [place] # 0.7 K/mm3 (0.0-0.8) 08/05/18 05:12 Eos # 0.0 K/mm3 (0.0-0.4) 08/05/18 05:12 Baso # 0.0 K/mm3 (0.0-0.1) 08/05/18 05:12 Seg Neutrophils % 66.2 % (40.0-70.0) 08/05/18 05:12 Seg Neutrophils # 3.4 K/mm3 (1.8-7.7) 08/05/18 05:12 PT 14.0 Sec. (12.2-14.9) 08/03/18 14:01 INR 1.04 (0.87-1.13) 08/03/18 14:01 APTT 30.1 Sec. (24.2-36.6) 08/03/18 14:01 Sodium 134 mmol/L (137-145) L 08/08/18 05:22 Potassium 4.1 mmol/L (3.6-5.0) 08/08/18 05:22 Chloride 104.3 mmol/L (98-107) 08/08/18 05:22 Carbon Dioxide 20 mmol/L (22-30) L 08/08/18 05:22 Anion Gap 14 mmol/L 08/08/18 05:22 BUN 12 mg/dL (9-20) 08/08/18 05:22 Creatinine 1.3 mg/dL (0.8-1.5) 08/08/18 05:22 Estimated GFR > 60 ml/min 08/08/18 05:22 BUN/Creatinine Ratio 9 % 08/08/18 05:22 Glucose 89 mg/dL (75-100) 08/08/18 05:22 POC Glucose 94 (70-105) 08/08/18 16:47 Hemoglobin A1c < 4.2 % (4-6) 08/04/18 00:45 Calcium 8.3 mg/dL (8.4-10.2) L 08/08/18 05:22 Magnesium 1.70 mg/dL (1.7-2.3) 08/08/18 05:22 Total Bilirubin 0.50 mg/dL (0.1-1.2) 08/04/18 00:45 Direct Bilirubin 0.3 mg/dL (0-0.2) H 08/03/18 14:01 Indirect Bilirubin 0.4 mg/dL 08/03/18 14:01 AST 32 units/L (5-40) 08/04/18 00:45 ALT 12 units/L (7-56) 08/04/18 00:45 Alkaline Phosphatase 57 units/L (35-129) 08/04/18 00:45 Ammonia 38.0 umol/L (25-60) 08/03/18 14:45 Total Creatine Kinase 152 units/L (55-170) 08/03/18 14:01 CK-MB (CK-2) 1.6 ng/mL (0.0-4.0) 08/03/18 14:01 CK-MB (CK-2) Rel Index 1.0 (0-4) 08/03/18 14:01 NT-Pro-B Natriuret Pep 1897 pg/mL (0-900) H 08/03/18 14:01 Total Protein 7.0 g/dL (6.3-8.2) 08/04/18 00:45 Albumin 3.0 g/dL (3.9-5) L 08/04/18 00:45 Albumin/Globulin Ratio 0.8 % 08/04/18 00:45 Plasma/Serum Alcohol < 0.01 % (0-0.07) 08/03/18 14:30
[2018-08-10 12:44] VITALS: BP 133/88
== END 2018-08-10 13:07 | disposition home or self-care (01) | DRG 70 ==
LOC: ED 13:03 → 4A 16:49
PROVIDERS: ADMIT Internal Medicine; ATTEND Hospitalist
DX: G93.41 Metabolic encephalopathy (principal); N17.0 Acute kidney failure with tubular necrosis; F10.231 Alcohol dependence with withdrawal delirium; R56.9 Unspecified convulsions; E83.42 Hypomagnesemia; E86.0 Dehydration; E87.6 Hypokalemia; I16.0 Hypertensive urgency; Z82.49 Family history of ischemic heart disease and other diseases of the circulatory system
CPT/HCPCS: 36415; 70450; 71045; 80048; 80053; 80076; 80320; 82140; 82550; 82553; 82962; 83036; 83735; 83880; 85025; 85027; 85610; 85730; 93005; 93010; G0378; G0480; J0360; J1170; J1650; J1953; J2060; J2405; J3411; J3475; J7030; J7042